=== PATIENT | male | born 1950 | race African-American/Black ===

== ENCOUNTER 2018-02-22 06:52 | Day surgery (SDC) | payer MEDICAID, OTHER ==
[~2018-02-22 06:52] MED LIST: KETOROLAC TROMETHAMINE 0.45% 4 DROP/0.4 ML DROPERETTE OS PRN
[2018-02-22] MEDS ORDERED: CHONDR SU A NA/HYALUR INTRAOC KIT (SURGICARE) ONE (07:07)
[2018-02-22] MEDS ORDERED: LIDOCAINE 1% INJ-PF (10 MG/ML) 30 ML SDV ONE (07:07)
[2018-02-22] MEDS ORDERED: EPINEPHRINE INJ/PF 1 MG/1 ML AMPULE ONE ×2 (07:07→07:37)
[2018-02-22] MEDS: CYCLOPENTOLATE 0.2%/PHENYLEPHRINE 1% OPH SOLN 2 ML OS PRN ×3 (07:18→07:45)
[2018-02-22] MEDS: TETRACAINE HCL 0.5% OPH SOLN 4 ML OS PRN ×3 (07:18→07:53)
[2018-02-22] MEDS: TROPICAMIDE 1% OPH SOLN 3 ML OS PRN ×3 (07:18→07:45)
[2018-02-22] MEDS: BESIFLOXACIN HCL 0.6% OPH SUSP 5 ML BOTTLE OS PRN ×3 (07:18→08:21)
[2018-02-22] MEDS ORDERED: MIDAZOLAM 2 MG/2 ML INJ ONE (07:45)
[2018-02-22] MEDS ORDERED: FENTANYL CITRATE INJ/PF 100 MCG/2 ML AMPUL ONE (07:45)
--- NOTE | 2018-02-22 14:42 | [facility] OPERATIVE REPORT E ---
[facility] Operative Report NAME: GERRY ISRAEL AGE: 67Y DATE OF SURGERY: 02/22/2018 ROOM: PREOPERATIVE DIAGNOSIS: CATARACT, LEFT EYE. POSTOPERATIVE DIAGNOSIS: CATARACT, LEFT EYE. OPERATION: Cataract extraction with insertion of an IOL of the left eye. SURGEON: CHENTE NOEL M.D. ANESTHESIA: Topical. PROCEDURE: After obtaining appropriate consent, the patient's left eye was prepped and draped in sterile fashion as well as the surgeon in a sterile manner and cataract surgery was started. First a paracentesis blade was used to make a side-port incision. Viscoelastic was used to inflate the anterior chamber. Next a 2.4 mm incision was made with a 2.4 mm blade, clear corneal temporally. A continuous capsulorrhexis was made using a cystotome and Utrata forceps. Following this hydrodissection was carried out to make the lens fully loose and mobile and it was rotated 90 degrees. Following this, a uaocag-hfx-tnvzdvq technique was used to phacoemulsify the lens with a CDE of 8.44. The remaining cortex was removed with irrigation/aspiration. Provisc was instilled into the capsular bag to inflate the bag. A SN60WF, 16.5 diopter lens was placed. The remaining viscoelastic material was removed with irrigation/aspiration. Following this, the incision was found to be watertight. Besivance was instilled into the eye and a protective shield was placed over the eye. The patient returned to the postoperative recovery in stable condition. DICTATING PHYSICIAN: CHENTE NOEL M.D. [id number] PHY#: [id number] ID: [id number] JOB#: [id number] ACCT: [id number] cc:CHENTE NOEL M.D. >
--- NOTE | 2018-02-22 14:43 | [facility] DISCHARGE SUMMARY E ---
[facility] Discharge Summary NAME: GERRY ISRAEL AGE: 67Y ADMITTED: 02/22/2018 DISCHARGED: 02/22/2018 DIAGNOSIS: CATARACT, LEFT EYE. SUMMARY: This is a 67-year-old patient who underwent cataract extraction, left eye. They underwent surgery because they were having difficulty seeing words on the television. DISCHARGE INSTRUCTIONS: They should be on a regular diet, no bending at their waist, and no heavy lifting. They should use their Besivance, Ilevro, and Durezol at 3 p.m. and 8 p.m. and sleep with a rigid shield. I will see them for their 1-day postoperative tomorrow. DICTATING PHYSICIAN: CHENTE NOEL M.D. [id number] PHY#: [id number] ID: [id number] JOB#: [id number] ACCT: [id number] cc:CHENTE NOEL M.D. >
== END 2018-02-22 08:55 | disposition home or self-care (01) ==
LOC: SC 06:52
PROVIDERS: ATTEND Internal Medicine
DX: H25.812 Combined forms of age-related cataract, left eye (principal)
CPT/HCPCS: 66984; V2632; J2250; J3490 ×3; J0171; J3010; 142

== ENCOUNTER 2018-03-18 08:12 | Day surgery (SDC) | payer OTHER ==
[~2018-03-18 08:12] MED LIST changes: +KETOROLAC TROMETHAMINE 0.45% 4 DROP/0.4 ML DROPERETTE OD PRN; -KETOROLAC TROMETHAMINE 0.45% 4 DROP/0.4 ML DROPERETTE OS PRN
[2018-03-18] MEDS ORDERED: LIDOCAINE 1% INJ-PF (10 MG/ML) 30 ML SDV ONE (08:19)
[2018-03-18] MEDS: CYCLOPENTOLATE 0.2%/PHENYLEPHRINE 1% OPH SOLN 2 ML OD PRN ×3 (08:49→09:19)
[2018-03-18] MEDS: TROPICAMIDE 1% OPH SOLN 3 ML OD PRN ×3 (08:49→09:19)
[2018-03-18] MEDS: BESIFLOXACIN HCL 0.6% OPH SUSP 5 ML BOTTLE OD PRN ×4 (08:50→09:58)
[2018-03-18] MEDS: TETRACAINE HCL 0.5% OPH SOLN 4 ML OD PRN ×4 (08:51→09:33)
[2018-03-18] MEDS ORDERED: MIDAZOLAM 2 MG/2 ML INJ ONE (09:12)
[2018-03-18] MEDS: EPINEPHRINE INJ/PF 1 MG/1 ML AMPULE ONE ×2 (09:44)
[2018-03-18] MEDS: CHONDR SU A NA/HYALUR INTRAOC KIT (SURGICARE) ONE ×2 (09:44)
[2018-03-18] MEDS ORDERED: LIDOCAINE 1%/PHENYLEPHRINE 1.5% 1 ML VIAL ONE (09:46)
--- NOTE | 2018-03-18 19:08 | [facility] OPERATIVE REPORT E ---
[facility] Operative Report NAME: GERRY ISRAEL AGE: 67Y DATE OF SURGERY: 03/18/2018 ROOM: PREOPERATIVE DIAGNOSIS: CATARACT, RIGHT EYE. POSTOPERATIVE DIAGNOSIS: CATARACT, RIGHT EYE. OPERATION: Cataract extraction with insertion of an IOL of the right eye. SURGEON: CHENTE NOEL M.D. ANESTHESIA: Topical. PROCEDURE: After obtaining appropriate consent, the patient's right eye was prepped and draped in sterile fashion as well as the surgeon in a sterile manner and cataract surgery was started. First a paracentesis blade was used to make a side-port incision. Viscoelastic was used to inflate the anterior chamber. Next a 2.4 mm incision was made with a 2.4 mm blade, clear corneal temporally. A continuous capsulorrhexis was made using a cystotome and Utrata forceps. Following this hydrodissection was carried out to make the lens fully loose and mobile and it was rotated 90 degrees. Following this, a eegwpf-cmv-ndpkoxw technique was used to phacoemulsify the lens with a CDE of 8.97. The remaining cortex was removed with irrigation/aspiration. Provisc was instilled into the capsular bag to inflate the bag. A SN60WF, 17.0 diopter lens was placed. The remaining viscoelastic material was removed with irrigation/aspiration. Following this, the incision was found to be watertight. Besivance was instilled into the eye and a protective shield was placed over the eye. The patient returned to the postoperative recovery in stable condition. DICTATING PHYSICIAN: CHENTE NOEL M.D. [id number] PHY#: [id number] ID: [id number] JOB#: [id number] ACCT: [id number] cc:CHENTE NOEL M.D. >
--- NOTE | 2018-03-18 19:13 | [facility] DISCHARGE SUMMARY E ---
[facility] Discharge Summary NAME: GERRY ISRAEL AGE: 67Y ADMITTED: 03/18/2018 DISCHARGED: This is a 67-year-old patient who underwent cataract extraction of the right eye. DIAGNOSIS: Cataract right eye. He underwent surgery because he was having trouble seeing words on the television. He should be on a regular diet. No bending at the waist and no heavy lifting. He should use his Vigamox, ketorolac, and Pred Forte at 3:00 p.m. and 8:00 p.m. and sleep with a rigid shield. I will see him for his 1-day postop tomorrow. DICTATING PHYSICIAN: CHENTE NOEL M.D. [id number] PHY#: [id number] ID: [id number] JOB#: [id number] ACCT: [id number] cc:CHENTE NOEL M.D. >
== END 2018-03-18 11:00 | disposition home or self-care (01) ==
LOC: SC 08:12
PROVIDERS: ATTEND Internal Medicine
DX: H25.811 Combined forms of age-related cataract, right eye (principal); Z96.1 Presence of intraocular lens; H40.1133 Primary open-angle glaucoma, bilateral, severe stage; I10 Essential (primary) hypertension; Z79.899 Other long term (current) drug therapy; Z79.82 Long term (current) use of aspirin
CPT/HCPCS: 66984; V2632; J2250; J3490 ×3; J0171; J2370; 142

== ENCOUNTER 2019-07-13 14:24 | Emergency (ER) | payer OTHER, MEDICARE, MEDICAID ==
[2019-07-13] MEDS ORDERED: ASPIRIN 81 MG TABLET, CHEWABLE PO ONE (14:59)
--- NOTE | 2019-07-13 14:59 | ER Document Report ---
ED Medical Screen (RME) - General Chief Complaint: Chest Pain Stated Complaint: Chest pain Time Seen by Provider: 07/13/19 14:57 Primary Care Provider: ALEXANDRU PENA DO [Primary Care Provider] - Follow up as needed Mode of Arrival: Ambulatory Information source: Patient Notes: 69-year-old male presented to ED for complaint of chest pain x4 days. He states he has had no shortness of breath nausea vomiting or any other problems. He states he feels like he is got a lot of pressure and is not able to burp. He states he does have a history of high blood pressure cholesterol, glaucoma. He also has a history of kidney disease. He is alert oriented respirations regular nonlabored speaking in full sentences. He states he has not been able to contact his MD so he came to the emergency room. He states he does not smoke drink or use any drugs. He states he lives with his ex-. I have greeted and performed a rapid initial assessment of this patient. A comprehensive ED assessment and evaluation of the patient, analysis of test results and completion of medical decision making process will be conducted by an additional ED providers. TRAVEL OUTSIDE OF THE [place] IN LAST 30 DAYS: No - Related Data Allergies/Adverse Reactions: No Known Allergies Allergy (Unverified 02/22/18 07:11) Past Medical History - Past Medical History Cardiac Medical History: Reports: Hx Hypertension - MEDICATED Denies: Hx Heart Attack Pulmonary Medical History: Denies: Hx Asthma Neurological Medical History: Denies: Hx Cerebrovascular Accident, Hx Seizures GI Medical History: Denies: Hx Hepatitis, Hx Hiatal Hernia, Hx Ulcer Infectious Medical History: Denies: Hx Hepatitis Past Surgical History: Denies: Hx Open Heart Surgery, Hx Pacemaker Physical Exam - Vital signs Vitals: Temp Pulse Resp BP Pulse Ox 99.2 F 64 18 165/92 H 100 07/13/19 14:29 07/13/19 14:29 07/13/19 14:29 07/13/19 14:07/13/19 14:29 Course - Vital Signs Vital signs: Temp Pulse Resp BP Pulse Ox 99.2 F 64 18 165/92 H 100 07/13/19 14:29 07/13/19 14:29 07/13/19 14:29 07/13/19 14:29 07/13/19 14:29 Doctor's Discharge - Discharge Referrals: ALEXANDRU PENA DO [Primary Care Provider] - Follow up as needed
--- NOTE | 2019-07-13 15:18 | ER Document Report ---
ED General - General Chief Complaint: Chest Pain Stated Complaint: Chest pain Time Seen by Provider: 07/13/19 14:57 Primary Care Provider: ALEXANDRU PENA DO [NO LOCAL MD] - Follow up as needed Mode of Arrival: Ambulatory TRAVEL OUTSIDE OF THE [place] IN LAST 30 DAYS: No - HPI Onset: Other - over the last few days Onset/Duration: Gradual Quality of pain: Burning, Cramping Severity: Moderate Pain Level: 3 Associated symptoms: None Exacerbated by: Denies Relieved by: Other - drinking Milk Similar symptoms previously: No Recently seen / treated by doctor: No Notes: 69 year old male with a history of HTN, CKD, H Pylori here in the ER for mid sternal chest pain off and on for the last several days. The patient says drinking milk makes the pain better. The patient denies fevers, chills, sweats, shortness of breath, cough, radiation of chest pain, nausea, vomiting. - Related Data Allergies/Adverse Reactions: No Known Allergies Allergy (Unverified 02/22/18 07:11) Past Medical History - General Information source: Patient - Social History Smoking Status: Never Smoker Frequency of alcohol use: None Drug Abuse: None Lives with: Spouse/Significant other Family History: Reviewed & Not Pertinent - Past Medical History Cardiac Medical History: Reports: Hx Hypertension - MEDICATED Denies: Hx Heart Attack Pulmonary Medical History: Denies: Hx Asthma Neurological Medical History: Denies: Hx Cerebrovascular Accident, Hx Seizures Renal/ Medical History: Reports: Other - CKD GI Medical History: Denies: Hx Hepatitis, Hx Hiatal Hernia, Hx Ulcer Infectious Medical History: Denies: Hx Hepatitis Past Surgical History: Denies: Hx Open Heart Surgery, Hx Pacemaker Review of Systems - Review of Systems Constitutional: No symptoms reported EENT: No symptoms reported Cardiovascular: Chest pain, Other - mid sternal/chest wall pain Respiratory: No symptoms reported Genitourinary: No symptoms reported Male Genitourinary: No symptoms reported Musculoskeletal: No symptoms reported Skin: No symptoms reported Hematologic/Lymphatic: No symptoms reported Neurological/Psychological: No symptoms reported -: Yes All other systems reviewed and negative Physical Exam - Vital signs Vitals: Temp Pulse Resp BP Pulse Ox 99.2 F 64 18 165/92 H 100 07/13/19 14:29 07/13/19 14:29 07/13/19 14:29 07/13/19 14:29 07/13/19 14:29 - Notes Notes: GENERAL: Well-appearing, well-nourished and in no acute distress. HEAD: Atraumatic, normocephalic. EYES: Pupils equal round and reactive to light, extraocular movements intact, sclera anicteric, conjunctiva are normal. ENT: Normal external ears, nares patent, oropharynx clear without exudates. Moist mucous membranes. NECK: Normal range of motion, supple without lymphadenopathy or JVD. LUNGS: Breath sounds clear to auscultation bilaterally and equal. No wheezes rales or rhonchi. HEART: Regular rate and rhythm without murmurs, rubs or gallops. CHEST: Mild tenderness over mid sternum. ABDOMEN: Soft, nontender, normoactive bowel sounds. No guarding, no rebound. No masses appreciated. EXTREMITIES: Normal range of motion, no pitting or edema. No clubbing or cyanosis. NEUROLOGICAL: Cranial nerves II through XII grossly intact. Normal speech, normal gait. PSYCH: Normal mood, normal affect. SKIN: Warm, Dry, normal turgor, no rashes or lesions noted. Course - Re-evaluation Re-evalutation: 07/13/19 17:10 The patient is here for epigastric pain which is made better with Milk. It sounds like the patient has GERD or an Ulcer. The patient felt better after a GI Cocktail. Patient's labs, EKG, chest xray unremarkable. Patient's symptoms do not sound concerning for ACS. Patient told to follow up with his PCP and with a GI Doctor. Patient told to start taking a PPI and H2 tan. - Vital Signs Vital signs: Temp Pulse Resp BP Pulse Ox 99.2 F 64 18 165/92 H 100 07/13/19 15:27 07/13/19 14:29 07/13/19 14:29 07/13/19 14:29 07/13/19 14:29 - Laboratory Result Diagrams: 07/13/19 15:58 07/13/19 15:58 Laboratory results interpreted by me: 07/13/19 07/13/19 15:58 15:58 Lymph % (Auto) 47.2 H Seg Neutrophils % 37.7 L Potassium 5.1 H BUN 21 H Creatinine 1.43 H Est GFR ( Amer) 59 L Est GFR (MDRD) Non-Af 49 L Calcium 10.6 H - Diagnostic Test Radiology reviewed: Image reviewed, Reports reviewed - EKG Interpretation by Me EKG shows normal: Sinus rhythm, Intervals, QRS Complexes Rate: Normal Rhythm: NSR [place]/QRS: Left axis deviation, LAHB/LAFB Additional EKG results interpreted by me: 07/13/19 15:17 T wave inversions in aVR, III Discharge - Discharge Clinical Impression: Chest pain Qualifiers: Chest pain type: unspecified Qualified Code(s): R07.9 - Chest pain, unspecified Condition: Stable Disposition: HOME, SELF-CARE Additional Instructions: Use over the counter anti-acid medications: 1) PPI (proton pump inhibitor) such as Protonix, Omeprazole, Prilosec 2) H2 Tan such as Zantac 3) Tums 4)Maalox. Follow up with your primary care doctor and tell him anout your ER visit. Also consider follow up with a GI Doctor (Dr. Lafleur) for further work up of your symptoms as you may need an endoscopy. Referrals: ALEXANDRU PENA DO [NO LOCAL MD] - Follow up as needed JOSE RAMON MONTERROSO MD [ACTIVE STAFF] - Follow up as needed
--- NOTE | 2019-07-13 15:32 | RADIOLOGY REPORT (SQ) ---
EXAM DESCRIPTION: CHEST 2 VIEWS IMAGES COMPLETED DATE/TIME: 07/13/2019 3:22 pm REASON FOR STUDY: Chest pain x4 days COMPARISON: None. EXAM PARAMETERS: NUMBER OF VIEWS: two views TECHNIQUE: Digital Frontal and Lateral radiographic views of the chest acquired. RADIATION DOSE: NA LIMITATIONS: none FINDINGS: LUNGS AND PLEURA: No opacities, masses or pneumothorax. No pleural effusion. MEDIASTINUM AND HILAR STRUCTURES: No masses or contour abnormalities. HEART AND VASCULAR STRUCTURES: Heart normal size. No evidence for failure. BONES: No acute findings. HARDWARE: None in the chest. OTHER: No other significant finding. IMPRESSION: NO ACUTE RADIOGRAPHIC FINDING IN THE CHEST. TECHNICAL DOCUMENTATION: JOB ID: [id number] 2010 [employer]- All Rights Reserved Reading location - IP/workstation name: [email or web address] [email or web address]
[2019-07-13] MEDS ORDERED: LIDOCAINE 2% VISCOUS SOLN 15 ML UDCUP PO ONE (15:45)
[2019-07-13] MEDS ORDERED: MAG HYDROX/AL HYDROX/SIMETH SUSP 30 ML UDCUP PO ONE (15:45)
[2019-07-13] MEDS ORDERED: METOCLOPRAMIDE HCL ORAL SOLN 10 MG/10 ML UDCUP PO ONE (15:45)
[2019-07-13 16:08] LABS: ABSOLUTE BASOPHILS # (AUTO) 0.1 10^3/uL (0.0-0.2); ABSOLUTE EOSINOPHILS # (AUTO) 0.1 10^3/uL (0.0-0.6); ABSOLUTE LYMPHOCYTES (AUTO) 2.4 10^3/uL (0.5-4.7); ABSOLUTE MONOCYTES (AUTO) 0.6 10^3/uL (0.1-1.4); ABSOLUTE NEUT (AUTO) 1.9 10^3/uL (1.7-8.2); BASOPHILS % (AUTO) 1.1 % (0-2); EOSINOPHILS % (AUTO) 1.8 % (0-6); HEMATOCRIT 45.2 % (37.9-51.0); HEMOGLOBIN 14.8 g/dL (13.5-17.0); LYMPHOCYTES % (AUTO) 47.2 % (13-45); MEAN CORPUSCULAR HEMOGLOBIN 28.3 pg (27.0-33.4); MEAN CORPUSCULAR HGB CONC 32.9 g/dL (32.0-36.0); MEAN CORPUSCULAR VOLUME 86 fl (80-97); MONOCYTES % (AUTO) 12.2 % (3-13); PLATELET COUNT 178 10^3/uL (150-450); RED BLOOD COUNT 5.24 10^6/uL (4.35-5.55); RED CELL DISTRIBUTION WIDTH 13.9 % (11.5-14.0); SEGMENTED NEUTROPHILS % (AUTO) 37.7 % (42-78); TOTAL CELLS COUNTED % (AUTO) 100 %; WHITE BLOOD COUNT 5.1 10^3/uL (4.0-10.5)
[2019-07-13 16:25] LABS: ALBUMIN 4.7 g/dL (3.5-5.0); ALKALINE PHOSPHATASE 64 U/L (38-126); ANION GAP 8 (5-19); ASPARTATE AMINO TRANSFERASE 29 U/L (17-59); BILIRUBIN,TOTAL 0.6 mg/dL (0.2-1.3); BLOOD UREA NITROGEN 21 mg/dL (7-20); CALCIUM 10.6 mg/dL (8.4-10.2); CARBON DIOXIDE 30 mmol/L (22-30); CHLORIDE 102 mmol/L (98-107); GLUCOSE 100 mg/dL (75-110); POTASSIUM 5.1 mmol/L (3.6-5.0); TOTAL PROTEIN 8.1 g/dL (6.3-8.2)
[2019-07-13 17:40] VITALS: BP 126/77
--- NOTE | 2019-07-13 18:44 | EKG REPORT ---
SEVERITY:- ABNORMAL ECG - SINUS RHYTHM LEFT ANTERIOR FASCICULAR BLOCK : Confirmed by: Silvino Saha 13-Jul-2019 18:43:09
== END 2019-07-13 17:39 | disposition home or self-care (01) ==
LOC: ER 14:24
DX: R07.9 Chest pain, unspecified (principal); I12.9 Hypertensive chronic kidney disease with stage 1 through stage 4 chronic kidney disease, or unspecified chronic kidney disease; N18.9 Chronic kidney disease, unspecified
CPT/HCPCS: 93005; 99285; 36415; 83690; 85025; 80053; 84484; 71046; 93010; J3490

== ENCOUNTER → 2019-11-09 | Outpatient (CLI) | payer OTHER ==
--- NOTE | 2019-11-09 13:54 | RADIOLOGY REPORT (SQ) ---
EXAM DESCRIPTION: MRI LT LOWER JOINT WITHOUT IMAGES COMPLETED DATE/TIME: 11/09/2019 11:57 am REASON FOR STUDY: M76.62 ACHILLES TENDINITIS, LEFT LEG M76.62 ACHILLES TENDINITIS, LEFT LEG COMPARISON: None. TECHNIQUE: Left ankle images acquired and stored on PACS. Multiplanar images include fat sensitive s equences as T1, fluid sensitive sequences as FST2/STIR, cartilage sensitive sequences as FSPD, and gr adient echo sequences. LIMITATIONS: None. FINDINGS: BONE MARROW: No alteration of signal to suggest marrow replacement or edema. No occult fra cture. No large osteophytes. EFFUSIONS: No subtalar or tibiotalar effusions. No loose bodies. OSSEOUS ARTICULATIONS: Normal tibiotalar, subtalar, talonavicular and calcaneocuboid joints. TALAR DOME AND TIBIAL PLAFOND: Normal cartilage. No osteochondral defect. ACHILLES TENDON: Thickened up to 1.3 cm in AP dimension with mildly increased intrasubstance signal w ithout tear or associated soft tissue inflammatory changes. TIBIALIS ANTERIOR TENDON: Intact without edema at the 1st MT attachment. TIBIALIS POSTERIOR TENDON: Normal morphology and no edema at the navicular attachment. No tendon elena th fluid. FLEXOR HALLUCIS LONGUS AND FLEXOR DIGITORUM TENDONS: Normal morphology and no tendon sheath fluid. No edema of the os trigonum. PERONEUS LONGUS AND BREVIS TENDON: Normal morphology and no tendon sheath fluid. No subluxation. ATFL, CFL, PTFL: Intact. No thickening or signal alteration. No pedro luis-ligamentous fluid. DELTOID LIGAMENT: Visualized components intact. TARSAL TUNNEL: No masses. No muscle atrophy. SINUS TARSI: No fluid. No reactive marrow edema or erosions. PLANTAR FASCIA: No signal alteration or tear. ADJACENT SOFT TISSUES: No masses. OTHER: Incidental note is made of calcaneal enthesopathy. IMPRESSION: Achilles tendinopathy without tear. TECHNICAL DOCUMENTATION: JOB ID: [id number] [employer]- All Rights Reserved Reading location - IP/workstation name: [email or web address]-
== END ==
LOC: RAD 10:27
PROVIDERS: ATTEND Preventive Medicine Undersea and Hyperbaric Medicine
DX: M76.62 Achilles tendinitis, left leg (principal)

== ENCOUNTER 2020-03-27 06:36 | Day surgery (SDC) | payer MEDICARE, MEDICAID ==
[2020-03-27] MEDS ORDERED: PROPOFOL INJ 200 MG/20 ML VIAL IV ONE ×2 (07:59→09:15)
[2020-03-27 09:44] VITALS: BP 117/68
--- NOTE | 2020-03-27 11:16 | Operative Report ---
Operative Report DATE OF SURGERY: 03/27/20 Operative Report: The risk, benefits and alternatives of the procedure including the risk of bleeding, perforation requiring surgery have been explained to the patient in detail and informed consent has been obtained. Patient is placed in left, lateral decubital position. Timeout was called. Propofol medication is administered. Rectal examination is done which did not reveal any masses, tears or fissures. An Olympus videoscope was introduced into the patient's rectum. Scope was then carefully advanced all the way to the cecum. Cecum was identified by the usual anatomical landmarks including the ileocecal valve as well as the appendiceal office. Photodocumentation is obtained. Scope was then sequentially pulled back via the various segments of the colon including the ascending colon, hepatic flexure, transverse colon, splenic flexure, descending colon and finally into the rectosigmoid portions of the colon. Retroflexion maneuvers performed. PREOPERATIVE DIAGNOSIS: Colorectal cancer screening POSTOPERATIVE DIAGNOSIS: Ascending colon polyp that is removed via snare polypectomy and retrieved. Small rectal polyp removed via snare polypectomy and retrieved. Internal hemorrhoids OPERATION: Colonoscopy with snare polypectomy SURGEON: JOSE RAMON MONTERROSO ANESTHESIA: LMAC TISSUE REMOVED OR ALTERED: As noted above. COMPLICATIONS: None. ESTIMATED BLOOD LOSS: None. INTRAOPERATIVE FINDINGS: As noted above. PROCEDURE: Patient tolerated the procedure well. No immediate postprocedure complications are noted. Patient is discharged in good condition. Discharge date 03/27/2020. Discharge diet: Regular. Discharge activity: Regular. 2 to 3-week follow-up to discuss findings. Patient is instructed to call the office or proceed to the emergency room should there be any further problems or questions. Wait on the pathology. Likely 3 to 5-year surveillance colonoscopy.
== END 2020-03-27 10:03 | disposition home or self-care (01) ==
LOC: OROUT 06:36
PROVIDERS: ATTEND Internal Medicine Gastroenterology
DX: Z12.11 Encounter for screening for malignant neoplasm of colon (principal); D12.2 Benign neoplasm of ascending colon; K62.1 Rectal polyp; K64.8 Other hemorrhoids; Z12.12 Encounter for screening for malignant neoplasm of rectum; I10 Essential (primary) hypertension; E78.5 Hyperlipidemia, unspecified; Z20.828 Contact with and (suspected) exposure to other viral communicable diseases
CPT/HCPCS: 45385; 88305 ×2; 00812; J2704; 812